=== PATIENT | female | born 1985 | race Two or more races ===

== ENCOUNTER 2017-09-11 10:12 | Emergency (ER) | payer MEDICAID ==
[2017-09-11] MEDS: IBUPROFEN 600 MG TAB PO (12:20)
== END 2017-09-11 12:57 | disposition home or self-care (01) ==
LOC: FTE 10:12
DX: J10.1 Influenza due to other identified influenza virus with other respiratory manifestations (principal)
CPT/HCPCS: 99283; Z7502